=== PATIENT | male | born 1960 | race Caucasian/White ===

== ENCOUNTER 2021-01-07 16:58 | Emergency (ER) | payer OTHER ==
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
[2021-01-07] MEDS ORDERED: LIDOCAINE 1% MPF 30 ML VIAL ONE (20:50)
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
[2021-01-07] MEDS ORDERED: LIDOCAINE 2% W/EPI 1:200,000 MPF 20 ML VIAL IM ONE (21:01)
[2021-01-07 22:31] VITALS: O2SAT 100
[2021-01-07 22:34] VITALS: BP 148/78; TEMP 98.8
== END 2021-01-07 21:13 | disposition home or self-care (01) ==
LOC: ER 16:58
PROC: 0JQH0ZZ Repair Left Lower Arm Subcutaneous Tissue and Fascia, Open Approach (ICD-10-PCS; principal; 2021-01-07)
DX: S51.812A Laceration without foreign body of left forearm, initial encounter (principal); W45.8XXA Other foreign body or object entering through skin, initial encounter; Y92.009 Unspecified place in unspecified non-institutional (private) residence as the place of occurrence of the external cause; I10 Essential (primary) hypertension
CPT/HCPCS: 99284